=== PATIENT | male | born 1960 | race Caucasian/White ===

== ENCOUNTER 2022-07-21 14:18 | Emergency (ER) | payer OTHER, SELFPAY ==
--- NOTE | 2022-07-21 14:37 | ED.WOUNDLAC ---
HPI - Wound/Laceration General Chief Complaint: Wound/Laceration Stated Complaint: stepped on a nail Time Seen by Provider: 07/21/22 15:42 Source: patient and RN notes reviewed Mode of arrival: ambulatory Limitations: no limitations History of Present Illness HPI narrative: 61-year-old male presents concern for puncture wound to the right foot. Reports prior to arrival he was walking down some stairs when he stepped on an exposed nail. He reports perhaps less than a half an inch puncture his foot. He is not up-to-date on his tetanus vaccination. Denies any decreased sensation, strength, range of motion foot. Extremity Location: Right: foot Related Data Home Medications Medication Instructions Recorded Confirmed levothyroxine 25 mcg tablet 25 mcg PO DAILY 07/21/22 07/21/22 lisinopril 5 mg tablet 5 mg PO DAILY 07/21/22 07/21/22 sildenafil 50 mg tablet 50 mg PO DIRECTED 07/21/22 07/21/22 Allergies Allergy/AdvReac Type Severity Reaction Status Date / Time No Known Allergies Allergy Verified 07/21/22 15:06 Review of Systems Review of Systems: CONSTITUTIONAL: Denies malaise, chills, sweats, or fever. SKIN: Reports puncture wound to the right foot MUSCULOSKELETAL: Denies muscle skeletal pain NEUROLOGIC: Denies numbness, weakness All systems reviewed & are unremarkable except as noted in HPI and below PMFSH Comments At time of signature, agree with nursing past medical, surgical, social and family history. There is no relevant family history pertinent to the presenting complaint Exam Narrative: GENERAL: Well-appearing, well-nourished, and in no acute distress. HEAD: Normocephalic, atraumatic. EYES: PERRLA, sclera clear ENT: Nares clear. Mucous membranes moist. NECK: Supple. CHEST: No respiratory distress. Speaks in full sentences. HEART: Regular rate and rhythm. EXTREMITIES: Grossly Normal range of motion. No edema. Grossly Normal strength and sensation. SKIN: Warm, dry. Puncture wound noted to the pedal aspect of the right foot beneath 1st digit without any surrounding erythema, edema, induration or drainage, wound is pinpoint and well approximated NEURO: Alert and oriented x3. No focal deficits. Cranial nerves II through XII grossly intact PSYCH: Normal mood and affect Course Course Emergency Course: Patient is aware of diagnosis, understands and agrees to treatment plan. Anticipatory guidance given. Patient agrees to follow-up as directed and is aware of reasons to seek care at the emergency department. Portions of this record may have been created with voice recognition software Level of Care: Express Care Visit Vital Signs Vital signs: Reviewed. MDM - Wound/Laceration MDM Narrative Medical decision making narrative: Exam findings show no acute concerns or changes; patient is non-toxic appearing and is in no distress. Patient is appropriate for outpatient treatment and follow-up. Differential Diagnosis Differential diagnosis: Likely laceration, abrasion, avulsion of skin and other (Puncture wound) Critical Care Time Critical Care Time Critical Care Time: No Discharge Plan Discharge Clinical Impression: Puncture wound of foot Patient Disposition: Home, Self-Care Condition: Stable Instructions: Antibiotic Form, Puncture Wound in the Foot (ED) Additional Instructions: Soak your foot in a mixture of warm water, apple cider vinegar or Epsom salt several times daily. Take ibuprofen or Tylenol as needed for pain. Elevate your foot as needed for comfort. Monitor for signs of infection such as increased redness, swelling, pain, and drainage and seek re-evaluation if you have any of the symptoms. Prescriptions: New amoxicillin-pot clavulanate 875-125 mg tablet 1 tablet PO Q12H 10 Days Qty: 20 0RF No Action sildenafil 50 mg tablet 50 mg PO DIRECTED levothyroxine 25 mcg tablet 25 mcg PO DAILY lisinopril 5 mg tablet 5 mg PO DAILY Follow-up/Re
[2022-07-21 15:07] VITALS: BP 149/95; PULSE 63; RESP 18; TEMP 36.8; O2SAT 100
[2022-07-21] MEDS: TETANUS,DIPHTHERIA,AC PERTUSSIS ADULT (0.5 ML) BOOSTRIX IM (15:25)
== END 2022-07-21 15:50 | disposition home or self-care (01) ==
PROVIDERS: Emergency Provider Nurse Practitioner; PCP Internal Medicine
DX: S91.331A Puncture wound without foreign body, right foot, initial encounter (principal); W45.0XXA Nail entering through skin, initial encounter; Z23 Encounter for immunization; I10 Essential (primary) hypertension; E03.9 Hypothyroidism, unspecified
CPT/HCPCS: 90471; 90715; 99203; G0463